=== PATIENT | female | born 1955 | race African-American/Black ===

== ENCOUNTER → 2019-12-22 | Outpatient (CLI) | payer OTHER | END | disposition home or self-care (01) | LOC: RADXRMAIN 11:13 | PROVIDERS: ATTEND Internal Medicine | DX: Z53.9 Procedure and treatment not carried out, unspecified reason (principal) ==

== ENCOUNTER → 2020-10-14 | Outpatient (CLI) | payer MEDICARE, OTHER ==
--- NOTE | 2020-10-14 14:40 | MR ---
EXAMINATION TYPE: MR brain wo/w con DATE OF EXAM: 10/14/2020 COMPARISON: None HISTORY: Headache, Pain in left side of head TECHNIQUE: Multiplanar, multisequence images of the brain and brainstem is performed without and with IV contras t, utilizing 9.5 mL intravenous Gadavist . FINDINGS: Diffusion weighted images demonstrate no evidence of a recent infarct or other diffusion ab normality. There is no extra-axial fluid collection. Some hyperintensity in the periventricular and pericallosal white matter on inversion recovery T2-weighted sequences may be related to chronic smal l vessel ischemic change The ventricular system and cisternal spaces are normal in size and appearanc e. The brain volume is age appropriate, there is mild cortical atrophy.. Midline structures demonstrate normal morphology. The craniocervical junction appears within normal limits. Post contrast images demonstrate no abnormal enhancement. The dural venous sinuses appear pa tent. The visualized sinuses are remarkable for mucosal thickening in the ethmoid air cells and front al sinus, maxillary sinuses show probable mucus retention cysts and the globes are intact. IMPRESSION: No acute brain abnormality. Sinus disease. Age-related changes of atrophy and probable ch ronic small vessel ischemia.
== END | disposition home or self-care (01) ==
LOC: RADMRIMAIN 11:57
PROVIDERS: ATTEND Psychiatry & Neurology Neurology
DX: C71.0 Malignant neoplasm of cerebrum, except lobes and ventricles (principal); G31.1 Senile degeneration of brain, not elsewhere classified
CPT/HCPCS: 70553; A9585